=== PATIENT | male | born 1990 | race Caucasian/White ===

== ENCOUNTER 2020-06-20 22:54 | Emergency (ER) | payer OTHER ==
[~2020-06-20] VITALS: Ht 185.4 cm; Wt 68.0 kg
[2020-06-20 22:55] VITALS: BP 114/68
== END 2020-06-20 23:44 | disposition home or self-care (01) ==
LOC: ER 22:56
DX: R22.32 Localized swelling, mass and lump, left upper limb (principal); Z20.89 Contact with and (suspected) exposure to other communicable diseases; Z98.890 Other specified postprocedural states

== ENCOUNTER 2024-09-24 15:48 | Emergency (ER) | payer MEDICAID, OTHER ==
[~2024-09-24] VITALS: Ht 185.4 cm; Wt 68.0 kg
[2024-09-24 16:03] VITALS: TEMP 98.5
[2024-09-24] MEDS: IV NS 0.9% 1,000 ML BAG IV ONE (16:27)
[2024-09-24] MEDS ORDERED: LEVE500T9 PO (16:35)
[2024-09-24] MEDS: LEVETIRACETAM (500MG) 1,000 MG in IV NS 0.9% 90 ML IV STA (16:35)
[2024-09-24 21:30] VITALS: BP 110/78; O2SAT 96
== END 2024-09-24 21:20 | disposition home or self-care (01) ==
LOC: ER 15:51
DX: R56.9 Unspecified convulsions (principal); Z59.00 Homelessness unspecified; Z79.899 Other long term (current) drug therapy
CPT/HCPCS: 99284; 96365; J7030 ×2; J1953